=== PATIENT | male | born 1990 | race Caucasian/White ===

== ENCOUNTER 2016-08-08 | Emergency (ER) | END 2016-08-08 18:09 | disposition home or self-care (01) ==

== ENCOUNTER 2016-09-14 10:31 | Emergency (ER) | payer MEDICAID | END 2016-09-14 11:34 | disposition home or self-care (01) | DX: T81.4XXA Infection following a procedure, initial encounter (principal); L02.519 Cutaneous abscess of unspecified hand; Y83.8 Other surgical procedures as the cause of abnormal reaction of the patient, or of later complication, without mention of misadventure at the time of the procedure; Z87.891 Personal history of nicotine dependence ==

== ENCOUNTER 2016-09-21 14:00 | Outpatient (CLI) | payer MEDICAID | END 2016-09-21 14:01 | disposition home or self-care (01) | DX: L03.012 Cellulitis of left finger (principal); L02.512 Cutaneous abscess of left hand ==

== ENCOUNTER 2016-09-22 11:56 | Outpatient (CLI) | payer MEDICAID | END 2016-09-22 11:57 | disposition home or self-care (01) | DX: M79.645 Pain in left finger(s) (principal) ==

== ENCOUNTER 2016-09-27 08:30 | Day surgery (SDC) | payer MEDICAID ==
[2016-09-27] MEDS ORDERED: LACTATED RINGERS 1,000 ML IV ONE (09:30)
[2016-09-27] MEDS ORDERED: ceFAZolin 2 GM/50 ML 50 ML IV SCH (09:45)
[2016-09-27] MEDS ORDERED: VANCOMYCIN INJ 1 GM in SODIUM CHLORIDE 0.9% 250 ML IV SCH (10:00)
[2016-09-27] MEDS ORDERED: BUPIVACAINE 0.25%-EPI 1:200000 PF 30 ML VIAL SUBQ ONE ×2 (11:35→11:53)
[2016-09-27] MEDS ORDERED: LIDOCAINE-MPF 2% 5 ML VIAL IM ONE (12:00)
[2016-09-27] MEDS ORDERED: ONDANSETRON 4 MG/2 ML VIAL IVP ONE (12:00)
[2016-09-27] MEDS ORDERED: fentaNYL 100 MCG/2 ML VIAL IVP ONE (12:00)
[2016-09-27] MEDS ORDERED: MIDAZOLAM 2 MG/2 ML VIAL IVP ONE (12:00)
[2016-09-27] MEDS ORDERED: KETOROLAC 30 MG/ML VIAL IVP ONE (12:00)
[2016-09-27] MEDS ORDERED: PROPOFOL 200 MG/20 ML VIAL IVP ONE (12:00)
[2016-09-27] MEDS ORDERED: DEXAMETHASONE 4 MG/ML VIAL IVP ONE (12:00)
== END 2016-09-27 08:31 | disposition home or self-care (01) ==
DX: L76.82 Other postprocedural complications of skin and subcutaneous tissue (principal); L02.512 Cutaneous abscess of left hand; L08.9 Local infection of the skin and subcutaneous tissue, unspecified; M66.342 Spontaneous rupture of flexor tendons, left hand; Z88.1 Allergy status to other antibiotic agents; Z88.0 Allergy status to penicillin; Z87.891 Personal history of nicotine dependence
CPT/HCPCS: 11043; 81599; J3370; J7120

== ENCOUNTER → 2017-06-27 | Outpatient (CLI) | payer MEDICAID ==
[2017-06-27 19:04] LABS: BASOPHILS % (AUTO) 0.5 %; EOSINOPHILS # (AUTO) 0.2 10^3/uL (0.0-0.7); EOSINOPHILS % (AUTO) 1.7 %; HCT - HEMATOCRIT 46.8 % (42.0-52.0); HGB - HEMOGLOBIN 15.5 g/dL (14.0-18.0); LYMPHOCYTES # (AUTO) 2.1 10^3/uL (1.5-3.5); LYMPHOCYTES % (AUTO) 22.8 %; MEAN CORPUSCULAR HEMOGLOBIN 31.9 pg (27.0-31.0); MEAN CORPUSCULAR HGB CONC 33.1 g/dL (32.0-36.0); MEAN CORPUSCULAR VOLUME 96.4 fL (80.0-94.0); MEAN PLATELET VOLUME 8.1 fL (7.4-11.4); MONOCYTES # (AUTO) 0.8 10^3/uL (0.0-1.0); MONOCYTES % (AUTO) 9.2 %; NEUTROPHILS # (AUTO) 5.9 10^3/uL (1.5-6.6); NEUTROPHILS % (AUTO) 65.8 %; RED BLOOD COUNT 4.85 10^6/uL (4.70-6.10); RED CELL DISTRIBUTION WIDTH 13.3 % (12.0-15.0)
[2017-06-27 19:14] LABS: ALBUMIN/GLOBULIN RATIO 1.2 (1.0-2.2); BILIRUBIN,TOTAL 0.5 mg/dL (0.2-1.0); BUN - BLOOD UREA NITROGEN 10 mg/dL (6-20); CARBON DIOXIDE - CO2 25 mmol/L (21-32); CHLORIDE 101 mmol/L (101-111); CHOL/HDL RATIO 3.5 (<5.0); CHOLESTEROL 191 mg/dL; CREATININE 0.6 mg/dL (0.6-1.2); GFR - MDRD 163 (>89); GLUCOSE 93 mg/dL (70-100); HDL CHOLESTEROL 54 mg/dL; LDL/HDL RATIO 2.3 (<3.6); SODIUM 138 mmol/L (135-145); TOTAL PROTEIN 8.3 g/dL (6.7-8.2); TRIGLYCERIDES 71 mg/dL; VLDL CHOLESTEROL 14 mg/dL
== END ==
LOC: LAB.N 14:15
PROVIDERS: ATTEND Family Medicine
DX: F41.1 Generalized anxiety disorder (principal); E66.9 Obesity, unspecified; I10 Essential (primary) hypertension
CPT/HCPCS: 36415; 80050; 80061

== ENCOUNTER 2020-10-16 13:59 | Outpatient (CLI) | payer SELFPAY ==
--- NOTE | 2020-10-17 10:20 | XRAY Report ---
PROCEDURE: Chest 2 View X-Ray INDICATIONS: CHEST PAIN TECHNIQUE: 2 view(s) of the chest. COMPARISON: None. FINDINGS: Surgical changes and devices: None. Lungs and pleura: No pleural effusions or pneumothorax. Lungs are clear. Mediastinum: Mediastinal contours are normal. Heart size is normal. Bones and chest wall: No suspicious bony abnormalities. Soft tissues appear unremarkable. IMPRESSION: No evidence acute pulmonary process. Reviewed by: Ren Mcleod MD on 10/17/2020 9:18 AM [facility] Approved by: Ren Mcleod MD on 10/17/2020 9:18 AM [facility] Station ID: [id number]
== END 2020-10-16 14:00 | disposition home or self-care (01) ==
LOC: DI.WCP 13:59
PROVIDERS: ATTEND Nurse Practitioner
DX: R07.9 Chest pain, unspecified (principal)

== ENCOUNTER 2021-03-03 10:33 | Emergency (ER) | payer SELFPAY ==
--- NOTE | 2021-03-03 11:12 | XRAY Report ---
PROCEDURE: Chest 1 View X-Ray INDICATIONS: chest pain TECHNIQUE: One view of the chest was acquired. COMPARISON: 10/16/2020 FINDINGS: Surgical changes and devices: None. Lungs and pleura: No pleural effusions or pneumothorax. Lungs are clear. Mediastinum: Mediastinal contours appear normal. Heart size is normal. Bones and chest wall: No suspicious bony lesions. Overlying soft tissues appear unremarkable. IMPRESSION: No acute cardiopulmonary pathology. Reviewed by: Giancarlo Varela MD on 03/03/2021 11:11 AM PDT Approved by: Giancarlo Varela MD on 03/03/2021 11:11 AM PDT Station ID: [id number]
--- NOTE | 2021-03-03 13:09 | ED Physician Documentation ---
PD HPI CHEST PAIN - Stated complaint Stated Complaint: CHEST PX - Chief complaint Chief Complaint: Cardiac - History obtained from History obtained from: Patient - Additional information Additional information: Patient comes emergency department chief complaint of chest pains for the last 3 months. He states that he feels them in different places around his left chest and that they are very localized. He states sometimes it hurts if he pushes on the area and sometimes it hurts if he takes a deep breath. He is concerned because he was told that on a previous EKG it showed that he could have had a heart attack in the past. He states he has lost weight and is down from almost 300 pounds and was hoping that this would help, but has not. He states he is on the keto diet but does not really do much in the way of exercise. 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 No dyspnea on exertion. No radiation of the pain. No nausea or vomiting or other complaints at this time. Review of Systems Ten Systems: 10 systems reviewed and negative Constitutional: reports: Reviewed and negative Eyes: reports: Reviewed and negative Ears: reports: Reviewed and negative Nose: reports: Reviewed and negative Throat: reports: Reviewed and negative Cardiac: reports: Chest pain / pressure Respiratory: reports: Reviewed and negative GI: reports: Reviewed and negative : reports: Reviewed and negative Skin: reports: Reviewed and negative Musculoskeletal: reports: Reviewed and negative Neurologic: reports: Reviewed and negative Psychiatric: reports: Reviewed and negative Endocrine: reports: Reviewed and negative Immunocompromised: reports: Reviewed and negative PD PAST MEDICAL HISTORY - Past Medical History Past Medical History: Yes Cardiovascular: None Respiratory: Other Endocrine/Autoimmune: None GI: None : None HEENT: None Psych: Anxiety, Panic attacks Musculoskeletal: None Derm: None - Past Surgical History Past Surgical History: No - Present Medications Home Medications: Ambulatory Orders Medication Instructions Recorded Confirmed No Known Home Medications 09/26/16 03/03/21 - Allergies Allergies/Adverse Reactions: Allergies Allergy/AdvReac Type Severity Reaction Status Date / Time erythromycin base Allergy Unknown Verified 03/03/21 10:44 Penicillins Allergy Unknown Verified 03/03/21 10:44 - Social History Does the pt smoke?: No Smoking Status: Never smoker Does the pt drink ETOH?: Yes Does the pt have substance abuse?: No - Immunizations Immunizations are current?: Yes - POLST Patient has POLST: No PD ED PE NORMAL - Vitals Vital signs reviewed: Yes - General General: Alert and oriented X 3, No acute distress, Well developed/nourished - HEENT HEENT: Atraumatic, PERRL, EOMI, Moist mucous membranes - Neck Neck: Supple, no meningeal sign - Cardiac Cardiac: RRR, No murmur, Strong equal pulses - Respiratory Respiratory: No respiratory distress, Clear bilaterally - Abdomen Abdomen: Soft, Non tender, Non distended - Derm Derm: Normal color, Warm and dry, No rash - Extremities Extremities: No deformity - Neuro Neuro: Alert and oriented X 3 - Psych Psych: Normal mood, Normal affect Results - Vitals Vitals: Vital Signs - 24 hr 03/03/21 10:41 Temperature 36.0 C L Heart Rate 94 Respiratory 16 Rate Blood Pressure 131/118 H O2 Saturation 98 Oxygen O2 Source Room air - EKG (time done) 1043 Rate: Rate (enter#) (84) Rhythm: NSR [place]: Normal Intervals: Normal VT QRS: Normal Ischemia: ST elevation c/w repol. No: T wave inversion Compare to prior EKG: Old EKG unavailable Computer interpretation: Disagree with computer (No evidence of infarct.) - Rads (name of study) cxr Radiology: Final report received, EMP read indepedently, See rad report (neg) PD MEDICAL DECISION MAKING - ED course Complexity details: reviewed results, re-evaluated patient, considered differential, d/w patient ED course: I discussed with the patient that his symptoms are most consistent with a musculoskeletal etiology of his chest pain. His EKG shows ST changes consistent with repolarization and I do not find any evidence of acute ischemia. His chest x-ray is unremarkable. We have discussed the need for improved posture and more physical activity. We discussed the usual indications for return. Departure - Departure Disposition: 01 Home, Self Care Clinical Impression: Chest wall pain Condition: Stable Instructions: ED Chest Pain Costochondritis Comments: There is no evidence of a heart attack or other serious cause of your chest pain. Your chest x-ray is clear and your EKG shows electrical changes that are within normal scope, but no evidence of heart attack or any other serious cardiac condition. Your symptoms sound most consistent with a musculoskeletal source. You can work on getting active cardiovascular exercise, aiming for better posture, and incorporating a stretching regimen to help prevent this pain. You may use anti-inflammatories like ibuprofen if needed.
[2021-03-03 13:24] VITALS: BP 168/110
== END 2021-03-03 13:26 | disposition home or self-care (01) ==
LOC: ED 10:33
DX: R07.89 Other chest pain (principal)
CPT/HCPCS: 93005; 99283; 99284